=== PATIENT | female | born 1940 | race Caucasian/White ===

== ENCOUNTER 2020-02-22 15:04 | Emergency (ER) | payer MEDICARE, OTHER ==
[~2020-02-22] VITALS: Ht 157.5 cm; Wt 54.3 kg
--- NOTE | 2020-02-22 15:30 | NUR ---
EAR NOSE THROAT PHYSICIAN: KIANNA ALVAREZ RN, PT STATED TO HIM SHE ALWAYS HAS HIGH BP.
--- NOTE | 2020-02-22 16:34 | NUR ---
CREATIVE ARTS MUSIC THERAPIST: PT AMBULATORY WITH STEADY GAIT TO ROOM AT THIS TIME.
--- NOTE | 2020-02-22 16:40 | NUR ---
PT REFUSING TO KEEP ON BP CUFF STATING HAS CLAUSTROPHOBIA
[2020-02-22] MEDS ORDERED: hydrALAzine 20 MG/ML, 1ML ONE (17:51)
[2020-02-22] MEDS ORDERED: OXYcodone/APAP 5/325MG TABLET ONE (17:52)
[2020-02-22] MEDS ORDERED: hydrALAzine 20 MG/ML, 1ML IV ONE (18:00)
[2020-02-22] MEDS ORDERED: SODIUM CHLORIDE FLUSH 10ML SYR IVF ONE (18:00)
[2020-02-22] MEDS ORDERED: OXYcodone/APAP 5/325MG TABLET PO ONE (18:00)
--- NOTE | 2020-02-22 18:00 | NUR ---
PT REFUSING MEDICATIONS STATING "OH NO I DON'T TAKE MEDICATIONS, MY BP IS ALWAYS HIGH BUT ITS FINE WHEN I GET HOME" PT EDUCATED BY THAT SHE HAS A DISTENDED AORTA AND SHOULD TAKE BP MEDS, PT REFUSING STILL AFTER DISCUSSION OF RISKS INCLUDING . PT DEMONSTRATES UNDERSTANDING AND STATES SHE WOULD LIKE TO GO HOME.
[2020-02-22 18:03] LABS: BASOPHILS # (AUTO) 0.01 x10^3/uL (0-0.1); BASOPHILS % (AUTO) 0 % (0-1); EOSINOPHILS # (AUTO) 0.15 x10^3/uL (0-0.4); EOSINOPHILS % (AUTO) 2 % (1-7); LYMPHOCYTES # (AUTO) 1.82 x10^3/uL (1-3.4); LYMPHOCYTES % (AUTO) 26 % (22-44); MD NO; MEAN CORPUSCULAR HGB CONC 33.4 g/dL (32.4-35.8); MEAN CORPUSCULAR VOLUME 89.7 fL (80-100); MEAN PLATELET VOLUME 7.6 fL (7.4-10.4); MONOCYTES # (AUTO) 0.44 x10^3/uL (0.2-0.8); MONOCYTES % (AUTO) 6 % (2-9); NEUTROPHILS # (AUTO) 4.53 x10^3/uL (1.8-6.8); NEUTROPHILS % (AUTO) 65 % (42-75); PLATELET COUNT 294 x10^3/uL (130-400); RED BLOOD COUNT 5.36 x10^6/uL (3.82-5.3); RED CELL DISTRIBUTION WIDTH 14.2 % (9.6-15.2)
[2020-02-22 18:05] VITALS: BP 207/112
[2020-02-22 18:11] LABS: ALANINE AMINOTRANSFERASE 18 U/L (12-78); ALBUMIN 4.2 g/dL (3.4-5.0); ANION GAP 5 mmol/L (5-15); CALCIUM 9.1 mg/dL (8.5-10.1); CHLORIDE 105 mmol/L (98-107); CREATININE 0.62 mg/dL (0.55-1.02)
[2020-02-22 18:15] LABS: ALKALINE PHOSPHATASE 109 U/L (45-117); BILIRUBIN,TOTAL 0.6 mg/dL (0.2-1.0); TOTAL PROTEIN 7.9 g/dL (6.4-8.2); TROPONIN I < 0.015 ng/mL (0.000-0.045)
== END 2020-02-22 18:53 | disposition left against medical advice (07) ==
LOC: ED 16:04
DX: S20.212A Contusion of left front wall of thorax, initial encounter (principal); R19.00 Intra-abdominal and pelvic swelling, mass and lump, unspecified site; R94.31 Abnormal electrocardiogram [ECG] [EKG]; W01.0XXA Fall on same level from slipping, tripping and stumbling without subsequent striking against object, initial encounter; Y93.89 Activity, other specified; Y92.009 Unspecified place in unspecified non-institutional (private) residence as the place of occurrence of the external cause; Y99.8 Other external cause status
CPT/HCPCS: 36415; 71046; 80053; 83880; 84484; 85025; 93005; 99285